=== PATIENT | female | born 1955 | race Two or more races ===

== ENCOUNTER 2018-06-24 09:30 | Outpatient (CLI) | payer MEDICARE, OTHER | END 2018-06-24 23:59 | disposition home or self-care (01) | LOC: MSC 09:30 | PROVIDERS: ATTEND Anesthesiology | DX: M51.36 Other intervertebral disc degeneration, lumbar region (principal); M47.27 Other spondylosis with radiculopathy, lumbosacral region; M79.2 Neuralgia and neuritis, unspecified; Z79.891 Long term (current) use of opiate analgesic ==

== ENCOUNTER 2018-07-22 10:30 | Outpatient (CLI) | payer MEDICARE, OTHER | END 2018-07-22 23:59 | disposition home or self-care (01) | LOC: MSC 10:30 | PROVIDERS: ATTEND Anesthesiology | DX: M46.96 Unspecified inflammatory spondylopathy, lumbar region (principal); M51.36 Other intervertebral disc degeneration, lumbar region; M47.27 Other spondylosis with radiculopathy, lumbosacral region; M79.2 Neuralgia and neuritis, unspecified; Z79.891 Long term (current) use of opiate analgesic ==

== ENCOUNTER 2018-08-05 12:30 | Outpatient (CLI) | payer MEDICARE, OTHER | END 2018-08-05 23:59 | disposition home or self-care (01) | LOC: MSC 12:30 | PROVIDERS: ATTEND Anesthesiology | DX: G89.4 Chronic pain syndrome (principal); M46.96 Unspecified inflammatory spondylopathy, lumbar region; M47.27 Other spondylosis with radiculopathy, lumbosacral region; M51.36 Other intervertebral disc degeneration, lumbar region; M79.2 Neuralgia and neuritis, unspecified; M62.830 Muscle spasm of back; E11.9 Type 2 diabetes mellitus without complications; I10 Essential (primary) hypertension; Z79.891 Long term (current) use of opiate analgesic ==

== ENCOUNTER → 2018-09-04 | Day surgery (SDC) | payer MEDICARE, OTHER ==
[~2018-09-04] MED LIST: ACETAMINOPHEN W/ CODEINE#3 1 EA TABLET ONE; ACETAMINOPHEN W/ CODEINE#3 1 EA TABLET PO ONE; BUPIVACAINE 0.25% 75 MG/30 ML VIAL ONE; IOHEXOL 240MG/ML 50 ML IV ONE; LIDOCAINE HCL/PF 1% 30 ML SDV ONE; TRIAMCINOLONE ACETONIDE SUSP 40 MG/ML 1 ML ONE; methylPREDNISolone ACETATE 80 MG/ML VIAL ONE
== END | disposition home or self-care (01) ==
LOC: DS 07:06
PROVIDERS: ATTEND Anesthesiology
DX: M47.26 Other spondylosis with radiculopathy, lumbar region (principal); M54.5 Low back pain; G89.4 Chronic pain syndrome; E11.9 Type 2 diabetes mellitus without complications; I10 Essential (primary) hypertension; Z79.4 Long term (current) use of insulin; Z90.49 Acquired absence of other specified parts of digestive tract; Z88.6 Allergy status to analgesic agent; Z79.899 Other long term (current) drug therapy
CPT/HCPCS: 62323; 72020; 82962; A6209; J1040; J2704; J3490 ×2; Q9966

== ENCOUNTER → 2018-09-05 | Outpatient (CLI) | payer MEDICARE, OTHER | END | disposition home or self-care (01) | LOC: MSC 10:30 | PROVIDERS: ATTEND Anesthesiology | DX: G89.4 Chronic pain syndrome (principal); M46.96 Unspecified inflammatory spondylopathy, lumbar region; M51.36 Other intervertebral disc degeneration, lumbar region; M47.27 Other spondylosis with radiculopathy, lumbosacral region; M79.2 Neuralgia and neuritis, unspecified; M62.830 Muscle spasm of back; Z79.891 Long term (current) use of opiate analgesic ==

== ENCOUNTER → 2018-09-23 | Outpatient (CLI) | payer MEDICARE, OTHER | END | disposition home or self-care (01) | LOC: MSC 16:00 | PROVIDERS: ATTEND Anesthesiology | DX: M46.96 Unspecified inflammatory spondylopathy, lumbar region (principal); M51.36 Other intervertebral disc degeneration, lumbar region; M47.27 Other spondylosis with radiculopathy, lumbosacral region; M62.830 Muscle spasm of back; M79.2 Neuralgia and neuritis, unspecified; G89.4 Chronic pain syndrome; E11.8 Type 2 diabetes mellitus with unspecified complications; I10 Essential (primary) hypertension; Z79.891 Long term (current) use of opiate analgesic ==

== ENCOUNTER 2018-10-14 13:00 | Outpatient (CLI) | payer MEDICARE, OTHER | END 2018-10-14 23:59 | disposition home or self-care (01) | LOC: MSC 13:00 | PROVIDERS: ATTEND Anesthesiology | DX: M46.96 Unspecified inflammatory spondylopathy, lumbar region (principal); M51.36 Other intervertebral disc degeneration, lumbar region; M47.27 Other spondylosis with radiculopathy, lumbosacral region; M79.2 Neuralgia and neuritis, unspecified; M62.830 Muscle spasm of back; G89.4 Chronic pain syndrome ==

== ENCOUNTER 2018-11-25 10:30 | Outpatient (CLI) | payer MEDICARE, OTHER | END 2018-11-25 23:59 | disposition home or self-care (01) | LOC: MSC 10:30 | PROVIDERS: ATTEND Anesthesiology | DX: M46.96 Unspecified inflammatory spondylopathy, lumbar region (principal); M51.36 Other intervertebral disc degeneration, lumbar region; M47.27 Other spondylosis with radiculopathy, lumbosacral region; M79.2 Neuralgia and neuritis, unspecified; M62.830 Muscle spasm of back; M25.512 Pain in left shoulder; G89.4 Chronic pain syndrome; E11.9 Type 2 diabetes mellitus without complications; I10 Essential (primary) hypertension; R51 Headache; Z79.899 Other long term (current) drug therapy ==

== ENCOUNTER 2019-01-06 13:30 | Outpatient (CLI) | payer MEDICARE, OTHER | END 2019-01-06 23:59 | disposition home or self-care (01) | LOC: MSC 13:30 | PROVIDERS: ATTEND Anesthesiology | DX: M46.96 Unspecified inflammatory spondylopathy, lumbar region (principal); M51.36 Other intervertebral disc degeneration, lumbar region; M47.27 Other spondylosis with radiculopathy, lumbosacral region; M62.830 Muscle spasm of back; M79.2 Neuralgia and neuritis, unspecified; G89.4 Chronic pain syndrome; E11.8 Type 2 diabetes mellitus with unspecified complications; Z79.4 Long term (current) use of insulin; I10 Essential (primary) hypertension; R51 Headache; Z79.891 Long term (current) use of opiate analgesic; Z79.899 Other long term (current) drug therapy ==

== ENCOUNTER 2019-01-27 09:45 | Outpatient (CLI) | payer MEDICARE, OTHER | END 2019-01-27 23:59 | disposition home or self-care (01) | LOC: MSC 09:45 | PROVIDERS: ATTEND Anesthesiology | DX: M46.96 Unspecified inflammatory spondylopathy, lumbar region (principal); M47.27 Other spondylosis with radiculopathy, lumbosacral region; M51.36 Other intervertebral disc degeneration, lumbar region; M79.2 Neuralgia and neuritis, unspecified; M62.830 Muscle spasm of back; G89.4 Chronic pain syndrome; E11.9 Type 2 diabetes mellitus without complications; Z79.4 Long term (current) use of insulin; I10 Essential (primary) hypertension; R51 Headache; Z79.891 Long term (current) use of opiate analgesic ==

== ENCOUNTER 2019-02-24 10:39 | Outpatient (CLI) | payer MEDICARE, OTHER | END 2019-02-24 23:59 | disposition home or self-care (01) | LOC: MSC 10:39 | PROVIDERS: ATTEND Internal Medicine | DX: Z00.00 Encounter for general adult medical examination without abnormal findings (principal); M79.7 Fibromyalgia; E11.40 Type 2 diabetes mellitus with diabetic neuropathy, unspecified; E11.43 Type 2 diabetes mellitus with diabetic autonomic (poly)neuropathy; K31.84 Gastroparesis; Z79.4 Long term (current) use of insulin; I10 Essential (primary) hypertension; F17.200 Nicotine dependence, unspecified, uncomplicated; E78.5 Hyperlipidemia, unspecified; F41.8 Other specified anxiety disorders; G89.29 Other chronic pain; M54.9 Dorsalgia, unspecified; Z98.890 Other specified postprocedural states; Z88.6 Allergy status to analgesic agent ==

== ENCOUNTER 2019-02-24 13:00 | Outpatient (CLI) | payer MEDICARE, OTHER | END 2019-02-24 23:59 | disposition home or self-care (01) | LOC: MSC 13:00 | PROVIDERS: ATTEND Anesthesiology | DX: G89.4 Chronic pain syndrome (principal); M46.96 Unspecified inflammatory spondylopathy, lumbar region; M51.36 Other intervertebral disc degeneration, lumbar region; M47.27 Other spondylosis with radiculopathy, lumbosacral region; M79.2 Neuralgia and neuritis, unspecified; Z79.891 Long term (current) use of opiate analgesic; Z79.899 Other long term (current) drug therapy ==

== ENCOUNTER → 2019-03-24 | Outpatient (CLI) | payer MEDICARE, OTHER | END | disposition home or self-care (01) | LOC: MSC 09:00 | PROVIDERS: ATTEND Anesthesiology | DX: M46.96 Unspecified inflammatory spondylopathy, lumbar region (principal); M51.36 Other intervertebral disc degeneration, lumbar region; M47.27 Other spondylosis with radiculopathy, lumbosacral region; M62.830 Muscle spasm of back; M79.2 Neuralgia and neuritis, unspecified; G89.4 Chronic pain syndrome; Z79.891 Long term (current) use of opiate analgesic ==

== ENCOUNTER 2019-04-06 10:10 | Outpatient (CLI) | payer MEDICARE, OTHER ==
[2019-04-06 11:09] LABS: BASOPHILS % (AUTO) 0.3 % (0.0-2.0); EOSINOPHILS % (AUTO) 3.2 % (0.0-6.0); HEMATOCRIT 41 % (33-45); HEMOGLOBIN 14.2 g/dL (11.5-14.8); LYMPHOCYTES # (AUTO) 2.8 /CMM (0.8-4.8); LYMPHOCYTES % (AUTO) 38.3 % (20.0-44.0); MEAN CORPUSCULAR HGB CONC 34 g/dl (31.0-36.0); MEAN CORPUSCULAR VOLUME 92 fL (82-100); MONOCYTES # (AUTO) 0.7 /CMM (0.1-1.30); MONOCYTES % (AUTO) 9.9 % (2.0-12.0); NEUTROPHILS # (AUTO) 3.5 /CMM (1.8-8.9); NEUTROPHILS % (AUTO) 48.3 % (43.0-81.0); PLATELET COUNT (AUTO) 222 /CMM (150-450); RED BLOOD CELL COUNT(AUTO) 4.49 MIL/uL (4.0-5.2); WHITE BLOOD COUNT (AUTO) 7.2 K/uL (4.3-11.0)
[2019-04-06 11:17] LABS: ALBUMIN 3.5 g/dL (3.4-5.0); BILIRUBIN,DIRECT 0.1 mg/dL (0.0-0.2); BILIRUBIN,TOTAL 0.2 mg/dL (0.2-1.0); CALCIUM, SERUM 8.7 mg/dL (8.5-10.1); CREATININE 0.8 mg/dL (0.6-1.3); POTASSIUM 4.1 mmol/L (3.5-5.1); TOTAL PROTEIN, SERUM 8.4 g/dL (6.4-8.2)
[2019-04-07 10:19] VITALS: BP 134/90
== END 2019-04-06 23:59 | disposition home or self-care (01) ==
LOC: MSC 10:10
PROVIDERS: ATTEND Internal Medicine
DX: M79.7 Fibromyalgia (principal); E11.40 Type 2 diabetes mellitus with diabetic neuropathy, unspecified; E11.43 Type 2 diabetes mellitus with diabetic autonomic (poly)neuropathy; K31.84 Gastroparesis; Z79.4 Long term (current) use of insulin; G56.00 Carpal tunnel syndrome, unspecified upper limb; I10 Essential (primary) hypertension; E78.5 Hyperlipidemia, unspecified; F17.200 Nicotine dependence, unspecified, uncomplicated; F41.8 Other specified anxiety disorders; Z79.899 Other long term (current) drug therapy
CPT/HCPCS: 36415; 80048; 80061; 80076; 82728; 83036; 83540; 85025; G0463

== ENCOUNTER → 2019-04-14 | Outpatient (CLI) | payer MEDICARE, OTHER | END | disposition home or self-care (01) | LOC: MSC 10:40 | PROVIDERS: ATTEND Anesthesiology | DX: M46.96 Unspecified inflammatory spondylopathy, lumbar region (principal); M51.36 Other intervertebral disc degeneration, lumbar region; M47.27 Other spondylosis with radiculopathy, lumbosacral region; M62.830 Muscle spasm of back; M79.2 Neuralgia and neuritis, unspecified; G89.4 Chronic pain syndrome; Z79.891 Long term (current) use of opiate analgesic ==

== ENCOUNTER → 2019-05-19 | Outpatient (CLI) | payer MEDICARE, OTHER | END | disposition home or self-care (01) | LOC: MSC 11:00 | PROVIDERS: ATTEND Anesthesiology | DX: M51.36 Other intervertebral disc degeneration, lumbar region (principal); M47.27 Other spondylosis with radiculopathy, lumbosacral region; M46.96 Unspecified inflammatory spondylopathy, lumbar region; M62.830 Muscle spasm of back; G89.4 Chronic pain syndrome; M79.2 Neuralgia and neuritis, unspecified; Z79.891 Long term (current) use of opiate analgesic ==

== ENCOUNTER 2019-06-16 09:43 | Outpatient (CLI) | payer MEDICARE, OTHER ==
[2019-06-16 09:54] VITALS: BP 148/86
== END 2019-06-16 23:59 | disposition home or self-care (01) ==
LOC: MSC 09:43
PROVIDERS: ATTEND Internal Medicine
DX: M79.7 Fibromyalgia (principal); E11.40 Type 2 diabetes mellitus with diabetic neuropathy, unspecified; E11.43 Type 2 diabetes mellitus with diabetic autonomic (poly)neuropathy; K31.84 Gastroparesis; Z79.4 Long term (current) use of insulin; G56.00 Carpal tunnel syndrome, unspecified upper limb; I10 Essential (primary) hypertension; E78.5 Hyperlipidemia, unspecified; R07.9 Chest pain, unspecified; F17.200 Nicotine dependence, unspecified, uncomplicated; F41.8 Other specified anxiety disorders

== ENCOUNTER 2019-07-06 11:20 | Outpatient (CLI) | payer MEDICARE, OTHER ==
[2019-07-06 13:02] LABS: CALCIUM, SERUM 9.1 mg/dL (8.5-10.1); CREATININE 0.9 mg/dL (0.6-1.3); POTASSIUM 4.2 mmol/L (3.5-5.1)
== END 2019-07-06 23:59 | disposition home or self-care (01) ==
LOC: LAB 11:20
PROVIDERS: ATTEND Internal Medicine Cardiovascular Disease
DX: I10 Essential (primary) hypertension (principal); E78.5 Hyperlipidemia, unspecified
CPT/HCPCS: 36415; 80048-TC; 80061-TC

== ENCOUNTER 2019-07-08 09:09 | Outpatient (CLI) | payer MEDICARE, OTHER | END 2019-07-08 23:59 | disposition home or self-care (01) | LOC: US 09:09 | PROVIDERS: ATTEND Internal Medicine Cardiovascular Disease | DX: I71.4 Abdominal aortic aneurysm, without rupture (principal) | CPT/HCPCS: 76770-TC ==

== ENCOUNTER 2019-07-09 10:15 | Outpatient (CLI) | payer MEDICARE, OTHER ==
[2019-07-09 10:22] VITALS: BP 152/94
== END 2019-07-09 23:59 | disposition home or self-care (01) ==
LOC: MSC 10:15
PROVIDERS: ATTEND Internal Medicine
DX: R07.9 Chest pain, unspecified (principal); M79.7 Fibromyalgia; E11.40 Type 2 diabetes mellitus with diabetic neuropathy, unspecified; E11.43 Type 2 diabetes mellitus with diabetic autonomic (poly)neuropathy; K31.84 Gastroparesis; Z79.4 Long term (current) use of insulin; G56.00 Carpal tunnel syndrome, unspecified upper limb; I10 Essential (primary) hypertension; E78.5 Hyperlipidemia, unspecified; F17.200 Nicotine dependence, unspecified, uncomplicated; R47.02 Dysphasia; K21.9 Gastro-esophageal reflux disease without esophagitis

== ENCOUNTER → 2019-07-10 | Day surgery (SDC) | payer MEDICARE, OTHER ==
[~2019-07-10] VITALS: Ht 157.5 cm; Wt 59.0 kg
[~2019-07-10] MED LIST changes: -ACETAMINOPHEN W/ CODEINE#3 1 EA TABLET ONE; -ACETAMINOPHEN W/ CODEINE#3 1 EA TABLET PO ONE; -BUPIVACAINE 0.25% 75 MG/30 ML VIAL ONE; -IOHEXOL 240MG/ML 50 ML IV ONE; +IOHEXOL-350 100 ML VIAL IV ONE; +IV NS 0.9% 250 ML IV ONE; +IV NS 0.9% 500 ML IV PRN; -LIDOCAINE HCL/PF 1% 30 ML SDV ONE; +METOPROLOL TARTRATE INJ 5 MG/5 ML AMPUL ONE; +NITROGLYCERIN 0.4 MG/TAB BOTTLE ONE; +NITROGLYCERIN 0.4 MG/TAB BOTTLE SL ONE; -TRIAMCINOLONE ACETONIDE SUSP 40 MG/ML 1 ML ONE; -methylPREDNISolone ACETATE 80 MG/ML VIAL ONE
[2019-07-10] MEDS: METOPROLOL TARTRATE INJ 5 MG/5 ML AMPUL IVP PRN ×4 (09:58→10:13)
--- NOTE | 2019-07-10 10:33 | NUR ---
outpatient CTA heart completed, Metoprolol 5mg IVPx4 given , NTG 0.4 mg SL given, VSS; denies CP or SOB; transferred to floor for monitoring.
[2019-07-10 11:00] VITALS: BP 105/68
[2019-07-10 11:27] VITALS: BP 129/73
--- NOTE | 2019-07-10 12:10 | NUR ---
RN NOTE PT ARRIVED TO UNIT AT 1055, IN STABLE CONDITION, VS STABLE. MONITORED, NO DISTRESS VS STABLE AND DOCUMENTED, DISCHARGE INSTRUCTIONS PROVIDED AND REMINDED TO FOLLOW UP WITH DR NEFF. PT AOX4, VERBALIZED UNDERSTANDING. PAPER SIGNED AND COPY LEFT IN CHART. IV REMOVED, NO ID BAND.
== END | disposition home or self-care (01) ==
LOC: CT 09:07
PROVIDERS: ATTEND Internal Medicine Cardiovascular Disease
DX: I25.10 Atherosclerotic heart disease of native coronary artery without angina pectoris (principal)
CPT/HCPCS: 75574; J7050 ×2; Q9967; J3490

== ENCOUNTER 2019-08-11 11:00 | Outpatient (CLI) | payer MEDICARE, OTHER | END 2019-08-11 23:59 | disposition home or self-care (01) | LOC: MSC 11:00 | PROVIDERS: ATTEND Internal Medicine | DX: L98.9 Disorder of the skin and subcutaneous tissue, unspecified (principal); R07.9 Chest pain, unspecified; M79.7 Fibromyalgia; E13.40 Other specified diabetes mellitus with diabetic neuropathy, unspecified; E13.43 Other specified diabetes mellitus with diabetic autonomic (poly)neuropathy; K31.84 Gastroparesis; Z79.4 Long term (current) use of insulin; F32.9 Major depressive disorder, single episode, unspecified; G56.00 Carpal tunnel syndrome, unspecified upper limb; I10 Essential (primary) hypertension; E78.5 Hyperlipidemia, unspecified; F17.200 Nicotine dependence, unspecified, uncomplicated; Z79.899 Other long term (current) drug therapy ==

== ENCOUNTER 2019-08-15 11:41 | Emergency (ER) | payer MEDICARE, OTHER ==
[~2019-08-15] VITALS: Ht 157.5 cm; Wt 62.1 kg
[2019-08-15 11:52] VITALS: BP 137/89
--- NOTE | 2019-08-15 12:17 | NUR ---
Patient discharged to home in stable condition. Written and verbal after care instructions given. Patient verbalizes understanding of instruction.
== END 2019-08-15 12:18 | disposition home or self-care (01) ==
LOC: ER 11:43
DX: J02.8 Acute pharyngitis due to other specified organisms (principal); E11.9 Type 2 diabetes mellitus without complications; Z88.6 Allergy status to analgesic agent

== ENCOUNTER 2019-08-17 09:00 | Outpatient (CLI) | payer MEDICARE, OTHER | END 2019-08-17 23:59 | disposition home or self-care (01) | LOC: WOU 09:00 | PROVIDERS: ATTEND Surgery | DX: L72.0 Epidermal cyst (principal); L90.5 Scar conditions and fibrosis of skin; E11.9 Type 2 diabetes mellitus without complications; Z79.4 Long term (current) use of insulin; F17.200 Nicotine dependence, unspecified, uncomplicated | CPT/HCPCS: G0463 ==

== ENCOUNTER 2019-08-28 08:15 | Outpatient (CLI) | payer MEDICARE, OTHER | END 2019-08-28 23:59 | disposition home or self-care (01) | LOC: WOU 08:15 | PROVIDERS: ATTEND Surgery | DX: L72.0 Epidermal cyst (principal); L90.5 Scar conditions and fibrosis of skin; G89.29 Other chronic pain; E11.9 Type 2 diabetes mellitus without complications; Z79.4 Long term (current) use of insulin; Z79.899 Other long term (current) drug therapy | CPT/HCPCS: G0463 ==

== ENCOUNTER 2019-09-08 10:10 | Outpatient (CLI) | payer MEDICARE, OTHER | END 2019-09-08 23:59 | disposition home or self-care (01) | LOC: MSC 10:10 | PROVIDERS: ATTEND Anesthesiology | DX: M46.96 Unspecified inflammatory spondylopathy, lumbar region (principal); M51.36 Other intervertebral disc degeneration, lumbar region; M47.27 Other spondylosis with radiculopathy, lumbosacral region; M62.830 Muscle spasm of back; M79.2 Neuralgia and neuritis, unspecified; G89.4 Chronic pain syndrome; E11.9 Type 2 diabetes mellitus without complications; I10 Essential (primary) hypertension; R51 Headache; Z79.891 Long term (current) use of opiate analgesic; Z79.82 Long term (current) use of aspirin ==

== ENCOUNTER 2019-10-13 12:29 | Outpatient (CLI) | payer MEDICARE, OTHER | END 2019-10-13 23:59 | disposition home or self-care (01) | LOC: MSC 12:29 | PROVIDERS: ATTEND Internal Medicine | DX: M46.96 Unspecified inflammatory spondylopathy, lumbar region (principal); M51.36 Other intervertebral disc degeneration, lumbar region; M47.27 Other spondylosis with radiculopathy, lumbosacral region; M62.830 Muscle spasm of back; G89.4 Chronic pain syndrome; M79.605 Pain in left leg; M79.604 Pain in right leg; M72.2 Plantar fascial fibromatosis; M79.2 Neuralgia and neuritis, unspecified; E11.40 Type 2 diabetes mellitus with diabetic neuropathy, unspecified; E11.43 Type 2 diabetes mellitus with diabetic autonomic (poly)neuropathy; K31.84 Gastroparesis; Z79.4 Long term (current) use of insulin; R07.9 Chest pain, unspecified; M79.7 Fibromyalgia; I10 Essential (primary) hypertension; E78.5 Hyperlipidemia, unspecified; L98.9 Disorder of the skin and subcutaneous tissue, unspecified; F17.200 Nicotine dependence, unspecified, uncomplicated; Z79.891 Long term (current) use of opiate analgesic; Z79.899 Other long term (current) drug therapy | CPT/HCPCS: 82962; G0463 ==

== ENCOUNTER → 2019-11-03 | Outpatient (CLI) | payer MEDICARE, OTHER | END | disposition home or self-care (01) | LOC: MSC 11:34 | PROVIDERS: ATTEND Anesthesiology | DX: M46.96 Unspecified inflammatory spondylopathy, lumbar region (principal); M51.36 Other intervertebral disc degeneration, lumbar region; M47.27 Other spondylosis with radiculopathy, lumbosacral region; M62.830 Muscle spasm of back; G89.4 Chronic pain syndrome; M79.605 Pain in left leg; M79.604 Pain in right leg; E11.9 Type 2 diabetes mellitus without complications; I10 Essential (primary) hypertension; R51 Headache; Z79.891 Long term (current) use of opiate analgesic ==

== ENCOUNTER 2019-12-01 09:40 | Outpatient (CLI) | payer MEDICARE, OTHER | END 2019-12-01 23:59 | disposition home or self-care (01) | LOC: MSC 09:40 | PROVIDERS: ATTEND Anesthesiology | DX: M46.96 Unspecified inflammatory spondylopathy, lumbar region (principal); M51.36 Other intervertebral disc degeneration, lumbar region; M47.27 Other spondylosis with radiculopathy, lumbosacral region; M62.830 Muscle spasm of back; G89.4 Chronic pain syndrome; M79.2 Neuralgia and neuritis, unspecified; E11.9 Type 2 diabetes mellitus without complications; I10 Essential (primary) hypertension; R51 Headache; Z79.891 Long term (current) use of opiate analgesic ==

== ENCOUNTER → 2020-01-12 | Outpatient (CLI) | payer MEDICARE, OTHER | END | disposition home or self-care (01) | LOC: MSC 08:55 | PROVIDERS: ATTEND Anesthesiology | DX: M46.96 Unspecified inflammatory spondylopathy, lumbar region (principal); M51.36 Other intervertebral disc degeneration, lumbar region; M47.27 Other spondylosis with radiculopathy, lumbosacral region; M62.830 Muscle spasm of back; G89.4 Chronic pain syndrome; M79.605 Pain in left leg; M79.604 Pain in right leg; M79.2 Neuralgia and neuritis, unspecified; Z79.891 Long term (current) use of opiate analgesic; Z79.1 Long term (current) use of non-steroidal anti-inflammatories (NSAID) ==

== ENCOUNTER → 2020-02-09 | Outpatient (CLI) | payer MEDICARE, OTHER | END | disposition home or self-care (01) | LOC: MSC 08:45 | PROVIDERS: ATTEND Anesthesiology | DX: M51.36 Other intervertebral disc degeneration, lumbar region (principal); M46.96 Unspecified inflammatory spondylopathy, lumbar region; M47.27 Other spondylosis with radiculopathy, lumbosacral region; M62.830 Muscle spasm of back; M79.673 Pain in unspecified foot; M79.2 Neuralgia and neuritis, unspecified; G89.4 Chronic pain syndrome; R51 Headache; E11.9 Type 2 diabetes mellitus without complications; I10 Essential (primary) hypertension; Z79.891 Long term (current) use of opiate analgesic ==

== ENCOUNTER → 2020-03-01 | Outpatient (CLI) | payer MEDICARE, OTHER | END | disposition home or self-care (01) | LOC: MSC 14:15 | PROVIDERS: ATTEND Anesthesiology | DX: M46.96 Unspecified inflammatory spondylopathy, lumbar region (principal); M51.36 Other intervertebral disc degeneration, lumbar region; M47.27 Other spondylosis with radiculopathy, lumbosacral region; M62.830 Muscle spasm of back; G89.4 Chronic pain syndrome; M79.673 Pain in unspecified foot; M79.2 Neuralgia and neuritis, unspecified; E11.9 Type 2 diabetes mellitus without complications; I10 Essential (primary) hypertension; R51 Headache; Z79.891 Long term (current) use of opiate analgesic ==

== ENCOUNTER 2020-04-03 13:55 | Emergency (ER) | payer MEDICARE, OTHER ==
[~2020-04-03] VITALS: Ht 157.5 cm; Wt 58.1 kg
--- NOTE | 2020-04-03 14:27 | NUR ---
c/o chest pain, "feels like im burning" radiating to left armpit and lower back since yesterday 6/10 pain scale. PT AAOX4, VSS. RR EVEN & UNLABORED. DENIES SOB, DIZZINESS, N/V AT THIS TIME. PT SEEN & EVAL'D BY DR. BAER. PLACED ON NICK SETTER, SR. WILL CONT TO MONITOR.
[2020-04-03] MEDS ORDERED: LIDOCAINE VISCOUS 2% UD 15 ML UDC MM ONE (15:00)
[2020-04-03] MEDS ORDERED: IBUPROFEN 600 MG TABLET PO ONE (15:00)
[2020-04-03] MEDS ORDERED: MAG HYDROX/AL HYDROX/SIMETH 30 ML UDC PO ONE (15:00)
[2020-04-03] MEDS ORDERED: IV NS 0.9% 500 ML BAG IV ONE (15:00)
[2020-04-03] MEDS ORDERED: MAG HYDROX/AL HYDROX/SIMETH 30 ML UDC ONE (15:07)
[2020-04-03] MEDS ORDERED: LIDOCAINE VISCOUS 2% UD 15 ML UDC ONE (15:07)
[2020-04-03] MEDS ORDERED: IBUPROFEN 600 MG TABLET ONE (15:07)
--- NOTE | 2020-04-03 15:16 | NUR ---
PT REFUSED MEDS. DR. BAER AWARE.
[2020-04-03 15:34] LABS: BASOPHILS # (AUTO) 0.1 /CMM (0.0-0.2); BASOPHILS % (AUTO) 1.2 % (0.0-2.0); EOSINOPHILS % (AUTO) 2.6 % (0.0-6.0); HEMATOCRIT 42 % (33-45); HEMOGLOBIN 14.5 g/dL (11.5-14.8); LYMPHOCYTES # (AUTO) 2.6 /CMM (0.8-4.8); LYMPHOCYTES % (AUTO) 34.4 % (20.0-44.0); MEAN CORPUSCULAR HGB CONC 34 g/dl (31.0-36.0); MEAN CORPUSCULAR VOLUME 94 fL (82-100); MONOCYTES # (AUTO) 0.7 /CMM (0.1-1.30); NEUTROPHILS # (AUTO) 3.8 /CMM (1.8-8.9); NEUTROPHILS % (AUTO) 51.8 % (43.0-81.0); PLATELET COUNT (AUTO) 240 /CMM (150-450); RED BLOOD CELL COUNT(AUTO) 4.47 MIL/uL (4.0-5.2); WHITE BLOOD COUNT (AUTO) 7.4 K/uL (4.3-11.0)
[2020-04-03 15:42] LABS: CALCIUM, SERUM 8.8 mg/dL (8.5-10.1); CARBON DIOXIDE 28 mmol/L (21-32); CHLORIDE 101 mmol/L (98-107); CREATININE 0.7 mg/dL (0.6-1.3); GLUCOSE 271 mg/dL (74-106); POTASSIUM 3.6 mmol/L (3.5-5.1); SODIUM SERUM 133 mmol/L (136-145); UREA NITROGEN, BLOOD 10 mg/dL (7-18)
[2020-04-03 15:48] LABS: ALANINE AMINOTRANSFERASE 34 U/L (12-78); ALKALINE PHOSPHATASE 117 U/L (46-116); ASPARTATE AMINOTRANSFERASE 30 U/L (15-37); BILIRUBIN,DIRECT 0.1 mg/dL (0.0-0.2); BILIRUBIN,TOTAL 0.2 mg/dL (0.2-1.0); LIPASE 162 U/L (73-393)
--- NOTE | 2020-04-03 16:30 | NUR ---
Patient discharged to home in stable condition. Written and verbal after care instructions given. Patient verbalizes understanding of instruction. IV removed. Catheter intact and site benign. Pressure and 4x4 applied to site. No bleeding noted.
[2020-04-03 16:45] VITALS: BP 132/89
== END 2020-04-03 16:30 | disposition home or self-care (01) ==
LOC: ER 14:03
DX: R07.89 Other chest pain (principal); R10.13 Epigastric pain; I10 Essential (primary) hypertension; E78.5 Hyperlipidemia, unspecified; E11.40 Type 2 diabetes mellitus with diabetic neuropathy, unspecified; G89.4 Chronic pain syndrome; Z88.6 Allergy status to analgesic agent
CPT/HCPCS: 36415; 71045-TC; 80048-TC; 80076-TC; 83690-TC; 84484-TC; 85025-TC; J7040

== ENCOUNTER 2020-04-05 10:33 | Outpatient (CLI) | payer MEDICARE, OTHER | END 2020-04-05 23:59 | disposition home or self-care (01) | LOC: MSC 10:33 | PROVIDERS: ATTEND Internal Medicine | DX: F41.9 Anxiety disorder, unspecified (principal); M79.673 Pain in unspecified foot; R07.9 Chest pain, unspecified; L72.0 Epidermal cyst; M79.7 Fibromyalgia; F32.9 Major depressive disorder, single episode, unspecified; E11.40 Type 2 diabetes mellitus with diabetic neuropathy, unspecified; E11.43 Type 2 diabetes mellitus with diabetic autonomic (poly)neuropathy; K31.84 Gastroparesis; Z79.4 Long term (current) use of insulin; G56.00 Carpal tunnel syndrome, unspecified upper limb; I10 Essential (primary) hypertension; E78.5 Hyperlipidemia, unspecified ==

== ENCOUNTER 2020-04-18 13:47 | Outpatient (CLI) | payer MEDICARE, OTHER | END 2020-04-18 23:59 | disposition home or self-care (01) | LOC: MSC 13:47 | PROVIDERS: ATTEND Internal Medicine | DX: F41.9 Anxiety disorder, unspecified (principal); M79.673 Pain in unspecified foot; R07.9 Chest pain, unspecified; L72.0 Epidermal cyst; M79.7 Fibromyalgia; F32.9 Major depressive disorder, single episode, unspecified; E11.40 Type 2 diabetes mellitus with diabetic neuropathy, unspecified; E11.43 Type 2 diabetes mellitus with diabetic autonomic (poly)neuropathy; K31.84 Gastroparesis; Z79.4 Long term (current) use of insulin; G56.00 Carpal tunnel syndrome, unspecified upper limb; I10 Essential (primary) hypertension; E78.5 Hyperlipidemia, unspecified ==

== ENCOUNTER 2020-05-03 15:00 | Outpatient (CLI) | payer MEDICARE, OTHER | END 2020-05-03 23:59 | disposition home or self-care (01) | LOC: MSC 15:00 | PROVIDERS: ATTEND Anesthesiology | DX: M46.96 Unspecified inflammatory spondylopathy, lumbar region (principal); M51.36 Other intervertebral disc degeneration, lumbar region; M47.27 Other spondylosis with radiculopathy, lumbosacral region; M62.830 Muscle spasm of back; M79.2 Neuralgia and neuritis, unspecified; G89.4 Chronic pain syndrome; M79.673 Pain in unspecified foot; E11.9 Type 2 diabetes mellitus without complications; I10 Essential (primary) hypertension; R51.9 Headache, unspecified; Z79.891 Long term (current) use of opiate analgesic ==

== ENCOUNTER 2020-05-05 11:26 | Outpatient (CLI) | payer MEDICARE, OTHER | END 2020-05-05 23:59 | disposition home or self-care (01) | LOC: MSC 11:26 | PROVIDERS: ATTEND Internal Medicine | DX: M79.7 Fibromyalgia (principal); E11.40 Type 2 diabetes mellitus with diabetic neuropathy, unspecified; E11.43 Type 2 diabetes mellitus with diabetic autonomic (poly)neuropathy; K31.84 Gastroparesis; Z79.4 Long term (current) use of insulin; I10 Essential (primary) hypertension; F33.0 Major depressive disorder, recurrent, mild; M79.673 Pain in unspecified foot; R07.9 Chest pain, unspecified; E78.5 Hyperlipidemia, unspecified; G56.00 Carpal tunnel syndrome, unspecified upper limb; L72.9 Follicular cyst of the skin and subcutaneous tissue, unspecified; F17.200 Nicotine dependence, unspecified, uncomplicated ==

== ENCOUNTER 2020-06-07 09:52 | Outpatient (CLI) | payer MEDICARE, OTHER | END 2020-06-07 23:59 | disposition home or self-care (01) | LOC: MSC 09:52 | PROVIDERS: ATTEND Anesthesiology | DX: M46.96 Unspecified inflammatory spondylopathy, lumbar region (principal); M51.36 Other intervertebral disc degeneration, lumbar region; M47.27 Other spondylosis with radiculopathy, lumbosacral region; M62.830 Muscle spasm of back; G89.4 Chronic pain syndrome; M79.2 Neuralgia and neuritis, unspecified; M79.672 Pain in left foot; M79.671 Pain in right foot; Z79.891 Long term (current) use of opiate analgesic ==

== ENCOUNTER 2020-07-05 13:00 | Outpatient (CLI) | payer MEDICARE, OTHER | END 2020-07-05 23:59 | disposition home or self-care (01) | LOC: MSC 13:00 | PROVIDERS: ATTEND Anesthesiology | DX: M46.96 Unspecified inflammatory spondylopathy, lumbar region (principal); M51.36 Other intervertebral disc degeneration, lumbar region; M47.27 Other spondylosis with radiculopathy, lumbosacral region; M62.830 Muscle spasm of back; G89.4 Chronic pain syndrome; M79.2 Neuralgia and neuritis, unspecified; M79.673 Pain in unspecified foot; Z79.891 Long term (current) use of opiate analgesic ==

== ENCOUNTER 2020-08-02 11:35 | Outpatient (CLI) | payer MEDICARE, OTHER | END 2020-08-02 23:59 | disposition home or self-care (01) | LOC: MSC 11:35 | PROVIDERS: ATTEND Anesthesiology | DX: G89.4 Chronic pain syndrome (principal); M79.673 Pain in unspecified foot; M79.2 Neuralgia and neuritis, unspecified; M51.36 Other intervertebral disc degeneration, lumbar region; M46.96 Unspecified inflammatory spondylopathy, lumbar region; M47.27 Other spondylosis with radiculopathy, lumbosacral region; M62.830 Muscle spasm of back; Z88.6 Allergy status to analgesic agent; Z79.891 Long term (current) use of opiate analgesic ==

== ENCOUNTER 2020-08-05 08:10 | Outpatient (CLI) | payer MEDICARE, OTHER ==
[2020-08-05] MEDS ORDERED: UREA 10% -AHA 4% CREAM 57 GM TUBE ONE (09:16)
== END 2020-08-05 23:59 | disposition home or self-care (01) ==
LOC: WOU 08:10
PROVIDERS: ATTEND Podiatrist Foot & Ankle Surgery
DX: M79.671 Pain in right foot (principal); S91.301A Unspecified open wound, right foot, initial encounter; X58.XXXA Exposure to other specified factors, initial encounter; Y92.89 Other specified places as the place of occurrence of the external cause; L84 Corns and callosities; E11.9 Type 2 diabetes mellitus without complications; Z79.4 Long term (current) use of insulin; L90.5 Scar conditions and fibrosis of skin
CPT/HCPCS: G0463

== ENCOUNTER 2020-08-30 09:00 | Outpatient (CLI) | payer MEDICARE, OTHER | END 2020-08-30 23:59 | disposition home or self-care (01) | LOC: MSC 09:00 | PROVIDERS: ATTEND Anesthesiology | DX: M46.96 Unspecified inflammatory spondylopathy, lumbar region (principal); M51.36 Other intervertebral disc degeneration, lumbar region; M47.27 Other spondylosis with radiculopathy, lumbosacral region; M62.830 Muscle spasm of back; M79.2 Neuralgia and neuritis, unspecified; G89.4 Chronic pain syndrome; M79.673 Pain in unspecified foot; Z76.0 Encounter for issue of repeat prescription; Z88.6 Allergy status to analgesic agent; Z79.891 Long term (current) use of opiate analgesic ==

== ENCOUNTER → 2020-09-27 | Outpatient (CLI) | payer MEDICARE, OTHER | END | disposition home or self-care (01) | LOC: MSC 09-28 10:30 | PROVIDERS: ATTEND Anesthesiology | DX: M46.96 Unspecified inflammatory spondylopathy, lumbar region (principal); M51.36 Other intervertebral disc degeneration, lumbar region; M47.27 Other spondylosis with radiculopathy, lumbosacral region; M62.830 Muscle spasm of back; M79.2 Neuralgia and neuritis, unspecified; G89.4 Chronic pain syndrome; M79.673 Pain in unspecified foot; Z88.6 Allergy status to analgesic agent; Z79.891 Long term (current) use of opiate analgesic; Z79.899 Other long term (current) drug therapy ==

== ENCOUNTER 2020-11-01 09:20 | Outpatient (CLI) | payer MEDICARE, OTHER | END 2020-11-01 23:59 | disposition home or self-care (01) | LOC: MSC 09:20 | PROVIDERS: ATTEND Anesthesiology | DX: M47.27 Other spondylosis with radiculopathy, lumbosacral region (principal); M46.96 Unspecified inflammatory spondylopathy, lumbar region; M51.36 Other intervertebral disc degeneration, lumbar region; M62.830 Muscle spasm of back; G89.4 Chronic pain syndrome; M79.2 Neuralgia and neuritis, unspecified; M79.673 Pain in unspecified foot; Z79.891 Long term (current) use of opiate analgesic ==

== ENCOUNTER 2020-11-09 13:15 | Outpatient (CLI) | payer MEDICARE, OTHER | END 2020-11-09 23:59 | disposition home or self-care (01) | LOC: WOU 13:15 | PROVIDERS: ATTEND Podiatrist Foot & Ankle Surgery | DX: L90.5 Scar conditions and fibrosis of skin (principal); L84 Corns and callosities; E11.9 Type 2 diabetes mellitus without complications; Z79.4 Long term (current) use of insulin; M79.671 Pain in right foot | CPT/HCPCS: G0463 ==

== ENCOUNTER 2020-12-06 10:00 | Outpatient (CLI) | payer MEDICARE, OTHER | END 2020-12-06 23:59 | disposition home or self-care (01) | LOC: MSC 10:00 | PROVIDERS: ATTEND Anesthesiology | DX: M46.96 Unspecified inflammatory spondylopathy, lumbar region (principal); M51.36 Other intervertebral disc degeneration, lumbar region; M47.27 Other spondylosis with radiculopathy, lumbosacral region; M62.830 Muscle spasm of back; G89.4 Chronic pain syndrome; M79.673 Pain in unspecified foot; E11.40 Type 2 diabetes mellitus with diabetic neuropathy, unspecified; Z79.4 Long term (current) use of insulin; M79.2 Neuralgia and neuritis, unspecified; Z88.6 Allergy status to analgesic agent; Z79.891 Long term (current) use of opiate analgesic ==

== ENCOUNTER 2020-12-09 10:25 | Outpatient (CLI) | payer MEDICARE, OTHER | END 2020-12-09 23:59 | disposition home or self-care (01) | LOC: WOU 10:25 | PROVIDERS: ATTEND Podiatrist Foot & Ankle Surgery | DX: G57.53 Tarsal tunnel syndrome, bilateral lower limbs (principal); M72.2 Plantar fascial fibromatosis; L84 Corns and callosities; E11.9 Type 2 diabetes mellitus without complications; L90.5 Scar conditions and fibrosis of skin; M79.672 Pain in left foot; M79.671 Pain in right foot; Z79.4 Long term (current) use of insulin | CPT/HCPCS: G0463 ==

== ENCOUNTER 2020-12-12 11:14 | Outpatient (CLI) | payer MEDICARE, OTHER | END 2020-12-12 23:59 | disposition home or self-care (01) | LOC: RAD 11:14 | PROVIDERS: ATTEND Podiatrist Foot & Ankle Surgery | DX: M21.41 Flat foot [pes planus] (acquired), right foot (principal); M21.42 Flat foot [pes planus] (acquired), left foot; M77.31 Calcaneal spur, right foot ==

== ENCOUNTER 2020-12-13 10:46 | Outpatient (CLI) | payer MEDICARE, OTHER ==
[2020-12-13 12:10] LABS: BILIRUBIN,URINE NEGATIVE (NEGATIVE); LEUKOCYTE ESTERASE ,URINE NEGATIVE (NEGATIVE); NITRITE, URINE NEGATIVE (NEGATIVE); PROTEIN,URINE TRACE mg/dl (NEGATIVE); UGLUCOSE >=1000 mg/dL (NEGATIVE); UROBILINOGEN,URINE 0.2 EU/dL (0.2)
[2020-12-13 12:20] LABS: COLOR,URINE YELLOW (YELLOW)
[2020-12-13 12:22] LABS: BACTERIA,URINE None seen /HPF (None Seen); SQUAMOUS EPITHELIAL CELL,UR Rare /HPF (None Seen); WBC,URINE 0-2 /HPF (0-3)
[2020-12-13 12:23] LABS: BASOPHILS # (AUTO) 0.1 K/uL (0.0-0.2); BASOPHILS % (AUTO) 1.2 % (0.0-2.0); HEMATOCRIT 39 % (33-45); HEMOGLOBIN 13.2 g/dL (11.5-14.8); LYMPHOCYTES # (AUTO) 2.3 K/uL (0.8-4.8); LYMPHOCYTES % (AUTO) 33.3 % (20.0-44.0); MEAN CORPUSCULAR HGB CONC 34 g/dl (31.0-36.0); MEAN CORPUSCULAR VOLUME 95 fL (82-100); MONOCYTES # (AUTO) 0.6 K/uL (0.1-1.30); MONOCYTES % (AUTO) 9.2 % (2.0-12.0); NEUTROPHILS # (AUTO) 3.5 K/uL (1.8-8.9); NEUTROPHILS % (AUTO) 51.3 % (43.0-81.0); PLATELET COUNT (AUTO) 221 K/uL (150-450); RED BLOOD CELL COUNT(AUTO) 4.08 MIL/uL (4.0-5.2); WHITE BLOOD COUNT (AUTO) 6.8 K/uL (4.3-11.0)
[2020-12-13 12:28] LABS: CHOLESTEROL 92 mg/dL (<200); CREATININE, URINE 73.3 MG/DL (30.0-125.0); FREE T4 (FREE THYROXINE) 1.08 ng/dL (0.76-1.46); HDL CHOLESTEROL 24 mg/dL (40-60); LDL 35 mg/dL (0-99); PREALBUMIN 21.7 MG/DL (18.0-35.7); THYROID STIMULATING HORMONE 1.075 uIU/mL (0.358-3.74); TRIGLYCERIDES 189 mg/dL (30-150)
[2020-12-13 12:39] LABS: C-REACTIVE PROTEIN < 2.0 mg/dL (0.0-0.9)
[2020-12-13 13:00] LABS: ALKALINE PHOSPHATASE 99 U/L (46-116); BILIRUBIN,TOTAL 0.3 mg/dL (0.2-1.0); CALCIUM, SERUM 8.9 mg/dL (8.5-10.1); CARBON DIOXIDE 26 mmol/L (21-32); CHLORIDE 103 mmol/L (98-107); CREATININE 0.8 mg/dL (0.6-1.3); GLUCOSE 169 mg/dL (74-106); PHOSPHORUS 3.5 mg/dL (2.5-4.9); POTASSIUM 4.3 mmol/L (3.5-5.1); SODIUM SERUM 137 mmol/L (136-145); UREA NITROGEN, BLOOD 14 mg/dL (7-18)
[2020-12-13 13:01] LABS: ALANINE AMINOTRANSFERASE 38 U/L (12-78); ALBUMIN 3.5 g/dL (3.4-5.0); ASPARTATE AMINOTRANSFERASE 31 U/L (15-37); TOTAL PROTEIN, SERUM 8.2 g/dL (6.4-8.2)
== END 2020-12-13 23:59 | disposition home or self-care (01) ==
LOC: MSC 10:46
PROVIDERS: ATTEND Internal Medicine
DX: R63.4 Abnormal weight loss (principal); Z68.22 Body mass index [BMI] 22.0-22.9, adult; I25.2 Old myocardial infarction; Z95.820 Peripheral vascular angioplasty status with implants and grafts; I50.9 Heart failure, unspecified; M54.5 Low back pain; E11.40 Type 2 diabetes mellitus with diabetic neuropathy, unspecified; Z79.4 Long term (current) use of insulin; I25.10 Atherosclerotic heart disease of native coronary artery without angina pectoris; F17.200 Nicotine dependence, unspecified, uncomplicated; Z79.899 Other long term (current) drug therapy
CPT/HCPCS: 36415; 80053; 80061; 81001; 82043; 82306; 82570 ×2; 82607; 82746; 83036; 83735; 83970; 84100; 84134; 84155; 84439; 84443; 85025; 85652; 86140; G0463

== ENCOUNTER 2020-12-27 10:40 | Outpatient (CLI) | payer MEDICARE, OTHER | END 2020-12-27 23:59 | disposition home or self-care (01) | LOC: MSC 10:40 | PROVIDERS: ATTEND Anesthesiology | DX: M79.671 Pain in right foot (principal); M79.672 Pain in left foot; E11.9 Type 2 diabetes mellitus without complications; Z79.4 Long term (current) use of insulin; M51.36 Other intervertebral disc degeneration, lumbar region; M46.96 Unspecified inflammatory spondylopathy, lumbar region; M47.27 Other spondylosis with radiculopathy, lumbosacral region; M79.2 Neuralgia and neuritis, unspecified; M62.830 Muscle spasm of back; G89.4 Chronic pain syndrome; Z79.891 Long term (current) use of opiate analgesic; Z79.1 Long term (current) use of non-steroidal anti-inflammatories (NSAID); Z88.6 Allergy status to analgesic agent ==

== ENCOUNTER → 2021-01-24 | Outpatient (CLI) | payer MEDICARE, OTHER | END | disposition home or self-care (01) | LOC: MSC 10:45 | PROVIDERS: ATTEND Anesthesiology | DX: M46.96 Unspecified inflammatory spondylopathy, lumbar region (principal); M51.36 Other intervertebral disc degeneration, lumbar region; M47.27 Other spondylosis with radiculopathy, lumbosacral region; M62.830 Muscle spasm of back; G89.4 Chronic pain syndrome; M79.672 Pain in left foot; M79.671 Pain in right foot; M79.2 Neuralgia and neuritis, unspecified; Z79.891 Long term (current) use of opiate analgesic; Z79.1 Long term (current) use of non-steroidal anti-inflammatories (NSAID); Z79.4 Long term (current) use of insulin ==

== ENCOUNTER 2021-02-28 11:00 | Outpatient (CLI) | payer MEDICARE, OTHER | END 2021-02-28 23:59 | disposition home or self-care (01) | LOC: MSC 11:00 | PROVIDERS: ATTEND Anesthesiology | DX: M46.96 Unspecified inflammatory spondylopathy, lumbar region (principal); M51.36 Other intervertebral disc degeneration, lumbar region; M47.27 Other spondylosis with radiculopathy, lumbosacral region; M62.830 Muscle spasm of back; M79.2 Neuralgia and neuritis, unspecified; G89.4 Chronic pain syndrome; M79.673 Pain in unspecified foot; R20.2 Paresthesia of skin; Z79.84 Long term (current) use of oral hypoglycemic drugs; Z79.891 Long term (current) use of opiate analgesic ==

== ENCOUNTER → 2021-03-28 | Outpatient (CLI) | payer MEDICARE, OTHER | END | disposition home or self-care (01) | LOC: MSC 09:50 | PROVIDERS: ATTEND Anesthesiology | DX: M46.96 Unspecified inflammatory spondylopathy, lumbar region (principal); M51.36 Other intervertebral disc degeneration, lumbar region; M47.27 Other spondylosis with radiculopathy, lumbosacral region; M62.830 Muscle spasm of back; M79.2 Neuralgia and neuritis, unspecified; G89.4 Chronic pain syndrome; M79.673 Pain in unspecified foot; R20.2 Paresthesia of skin; Z88.6 Allergy status to analgesic agent; Z79.891 Long term (current) use of opiate analgesic; Z79.1 Long term (current) use of non-steroidal anti-inflammatories (NSAID); Z79.4 Long term (current) use of insulin ==

== ENCOUNTER → 2021-04-10 | Outpatient (CLI) | payer MEDICARE, OTHER | END | disposition home or self-care (01) | LOC: MSC 13:00 | PROVIDERS: ATTEND Internal Medicine | DX: M25.862 Other specified joint disorders, left knee (principal); I25.2 Old myocardial infarction; I50.9 Heart failure, unspecified; Z95.5 Presence of coronary angioplasty implant and graft; Z79.01 Long term (current) use of anticoagulants; I25.10 Atherosclerotic heart disease of native coronary artery without angina pectoris; E11.40 Type 2 diabetes mellitus with diabetic neuropathy, unspecified; Z79.4 Long term (current) use of insulin; R63.4 Abnormal weight loss; M54.50 Low back pain, unspecified; Z79.899 Other long term (current) drug therapy ==

== ENCOUNTER 2021-04-12 09:59 | Outpatient (CLI) | payer MEDICARE, OTHER | END 2021-04-12 23:59 | disposition home or self-care (01) | LOC: US 09:59 | PROVIDERS: ATTEND Internal Medicine | DX: M25.562 Pain in left knee (principal) | CPT/HCPCS: 73562; 76882 ==

== ENCOUNTER → 2021-04-13 | Outpatient (CLI) | payer MEDICARE, OTHER ==
[2021-04-13 10:45] LABS: BASOPHILS % (AUTO) 0.6 % (0.0-2.0); EOSINOPHILS % (AUTO) 4.2 % (0.0-6.0); HEMATOCRIT 42 % (33-45); HEMOGLOBIN 13.9 g/dL (11.5-14.8); LYMPHOCYTES # (AUTO) 1.8 K/uL (0.8-4.8); MEAN CORPUSCULAR HGB CONC 33 g/dl (31.0-36.0); MEAN CORPUSCULAR VOLUME 95 fL (82-100); MONOCYTES # (AUTO) 0.8 K/uL (0.1-1.30); MONOCYTES % (AUTO) 11.9 % (2.0-12.0); NEUTROPHILS # (AUTO) 3.5 K/uL (1.8-8.9); NEUTROPHILS % (AUTO) 55.3 % (43.0-81.0); PLATELET COUNT (AUTO) 203 K/uL (150-450); RED BLOOD CELL COUNT(AUTO) 4.37 MIL/uL (4.0-5.2); WHITE BLOOD COUNT (AUTO) 6.4 K/uL (4.3-11.0)
[2021-04-13 11:28] LABS: ALANINE AMINOTRANSFERASE 34 U/L (12-78); ALBUMIN 3.4 g/dL (3.4-5.0); ALKALINE PHOSPHATASE 115 U/L (46-116); ASPARTATE AMINOTRANSFERASE 35 U/L (15-37); BILIRUBIN,TOTAL 0.3 mg/dL (0.2-1.0); CALCIUM, SERUM 9.5 mg/dL (8.5-10.1); CARBON DIOXIDE 24 mmol/L (21-32); CHLORIDE 101 mmol/L (98-107); CREATININE 0.9 mg/dL (0.6-1.3); GLUCOSE 207 mg/dL (74-106); POTASSIUM 4.4 mmol/L (3.5-5.1); SODIUM SERUM 134 mmol/L (136-145); TOTAL PROTEIN, SERUM 8.3 g/dL (6.4-8.2); UREA NITROGEN, BLOOD 15 mg/dL (7-18)
[2021-04-13 11:31] LABS: C-REACTIVE PROTEIN < 0.2 mg/dL (0.0-0.9)
== END | disposition home or self-care (01) ==
LOC: MSC 09:52
PROVIDERS: ATTEND Internal Medicine
DX: R22.42 Localized swelling, mass and lump, left lower limb (principal); E11.40 Type 2 diabetes mellitus with diabetic neuropathy, unspecified; Z79.4 Long term (current) use of insulin; I25.2 Old myocardial infarction; I50.9 Heart failure, unspecified; R63.4 Abnormal weight loss; I25.10 Atherosclerotic heart disease of native coronary artery without angina pectoris; M54.50 Low back pain, unspecified; Z71.6 Tobacco abuse counseling; Z79.899 Other long term (current) drug therapy
CPT/HCPCS: 36415; 80053; 83036; 85025; 85652; 86140; G0463

== ENCOUNTER 2021-04-14 13:15 | Outpatient (CLI) | payer MEDICARE, OTHER | END 2021-04-14 23:59 | disposition home or self-care (01) | LOC: MSC 13:15 | PROVIDERS: ATTEND Internal Medicine | DX: R22.42 Localized swelling, mass and lump, left lower limb (principal); I25.2 Old myocardial infarction; Z95.5 Presence of coronary angioplasty implant and graft; I50.9 Heart failure, unspecified; Z79.01 Long term (current) use of anticoagulants; I25.10 Atherosclerotic heart disease of native coronary artery without angina pectoris; E11.40 Type 2 diabetes mellitus with diabetic neuropathy, unspecified; Z79.4 Long term (current) use of insulin; Z79.84 Long term (current) use of oral hypoglycemic drugs; R63.4 Abnormal weight loss; M54.50 Low back pain, unspecified; Z71.6 Tobacco abuse counseling ==

== ENCOUNTER 2021-04-18 08:50 | Outpatient (CLI) | payer MEDICARE, OTHER | END 2021-04-18 23:59 | disposition home or self-care (01) | LOC: WOU 08:50 | PROVIDERS: ATTEND Surgery | DX: S80.12XA Contusion of left lower leg, initial encounter (principal); X58.XXXA Exposure to other specified factors, initial encounter; Y92.89 Other specified places as the place of occurrence of the external cause; L72.0 Epidermal cyst; L90.5 Scar conditions and fibrosis of skin; E11.9 Type 2 diabetes mellitus without complications; G57.53 Tarsal tunnel syndrome, bilateral lower limbs; L84 Corns and callosities; M79.671 Pain in right foot; M72.2 Plantar fascial fibromatosis; Z79.4 Long term (current) use of insulin; Z79.02 Long term (current) use of antithrombotics/antiplatelets ==

== ENCOUNTER 2021-04-25 08:30 | Outpatient (CLI) | payer MEDICARE, OTHER | END 2021-04-25 23:59 | disposition home or self-care (01) | LOC: WOU 08:30 | PROVIDERS: ATTEND Surgery | DX: S80.12XD Contusion of left lower leg, subsequent encounter (principal); X58.XXXD Exposure to other specified factors, subsequent encounter; L90.5 Scar conditions and fibrosis of skin; E11.9 Type 2 diabetes mellitus without complications; L84 Corns and callosities; G57.53 Tarsal tunnel syndrome, bilateral lower limbs; M72.2 Plantar fascial fibromatosis; Z79.4 Long term (current) use of insulin; Z79.02 Long term (current) use of antithrombotics/antiplatelets | CPT/HCPCS: G0463 ==

== ENCOUNTER 2021-04-25 09:02 | Outpatient (CLI) | payer MEDICARE, OTHER | END 2021-04-25 23:59 | disposition home or self-care (01) | LOC: MSC 09:02 | PROVIDERS: ATTEND Anesthesiology | DX: G89.4 Chronic pain syndrome (principal); M79.673 Pain in unspecified foot; R20.2 Paresthesia of skin; M46.96 Unspecified inflammatory spondylopathy, lumbar region; M51.36 Other intervertebral disc degeneration, lumbar region; M47.27 Other spondylosis with radiculopathy, lumbosacral region; M62.830 Muscle spasm of back; M79.2 Neuralgia and neuritis, unspecified; Z79.891 Long term (current) use of opiate analgesic; Z79.4 Long term (current) use of insulin ==

== ENCOUNTER 2021-05-23 09:50 | Outpatient (CLI) | payer MEDICARE, OTHER | END 2021-05-23 23:59 | disposition home or self-care (01) | LOC: MSC 09:50 | PROVIDERS: ATTEND Anesthesiology | DX: M46.96 Unspecified inflammatory spondylopathy, lumbar region (principal); M51.36 Other intervertebral disc degeneration, lumbar region; M47.27 Other spondylosis with radiculopathy, lumbosacral region; M62.830 Muscle spasm of back; G89.4 Chronic pain syndrome; M79.2 Neuralgia and neuritis, unspecified; M79.673 Pain in unspecified foot; Z88.6 Allergy status to analgesic agent; Z79.891 Long term (current) use of opiate analgesic; Z79.1 Long term (current) use of non-steroidal anti-inflammatories (NSAID); Z79.4 Long term (current) use of insulin ==

== ENCOUNTER 2021-06-20 09:50 | Outpatient (CLI) | payer MEDICARE, OTHER | END 2021-06-20 23:59 | disposition home or self-care (01) | LOC: MSC 09:50 | PROVIDERS: ATTEND Anesthesiology | DX: M25.512 Pain in left shoulder (principal); M46.96 Unspecified inflammatory spondylopathy, lumbar region; M51.36 Other intervertebral disc degeneration, lumbar region; M47.27 Other spondylosis with radiculopathy, lumbosacral region; M62.830 Muscle spasm of back; G89.4 Chronic pain syndrome; M79.673 Pain in unspecified foot; M79.2 Neuralgia and neuritis, unspecified; Z79.891 Long term (current) use of opiate analgesic; Z88.6 Allergy status to analgesic agent ==

== ENCOUNTER 2021-07-03 11:45 | Outpatient (CLI) | payer MEDICARE, OTHER | END 2021-07-03 23:59 | disposition home or self-care (01) | LOC: MRI 11:45 | PROVIDERS: ATTEND Anesthesiology | DX: M19.012 Primary osteoarthritis, left shoulder (principal); M75.52 Bursitis of left shoulder | CPT/HCPCS: 73221-TC ==

== ENCOUNTER 2021-08-01 09:25 | Outpatient (CLI) | payer MEDICARE, OTHER | END 2021-08-01 23:59 | disposition home or self-care (01) | LOC: MSC 09:25 | PROVIDERS: ATTEND Anesthesiology | DX: G89.4 Chronic pain syndrome (principal); M25.512 Pain in left shoulder; M75.92 Shoulder lesion, unspecified, left shoulder; M79.642 Pain in left hand; M46.96 Unspecified inflammatory spondylopathy, lumbar region; M51.36 Other intervertebral disc degeneration, lumbar region; M47.27 Other spondylosis with radiculopathy, lumbosacral region; M62.830 Muscle spasm of back; M79.2 Neuralgia and neuritis, unspecified; Z79.891 Long term (current) use of opiate analgesic; Z88.6 Allergy status to analgesic agent; Z79.1 Long term (current) use of non-steroidal anti-inflammatories (NSAID); Z79.899 Other long term (current) drug therapy ==

== ENCOUNTER 2021-08-03 09:58 | Outpatient (CLI) | payer MEDICARE, OTHER ==
[2021-08-03 10:59] LABS: BASOPHILS % (AUTO) 0.5 % (0.0-2.0); EOSINOPHILS % (AUTO) 4.3 % (0.0-6.0); HEMATOCRIT 39 % (33-45); HEMOGLOBIN 13.2 g/dL (11.5-14.8); LYMPHOCYTES # (AUTO) 2.1 K/uL (0.8-4.8); LYMPHOCYTES % (AUTO) 35.9 % (20.0-44.0); MEAN CORPUSCULAR HGB CONC 34 g/dl (31.0-36.0); MEAN CORPUSCULAR VOLUME 94 fL (82-100); MONOCYTES # (AUTO) 0.6 K/uL (0.1-1.30); MONOCYTES % (AUTO) 10.6 % (2.0-12.0); NEUTROPHILS # (AUTO) 2.8 K/uL (1.8-8.9); NEUTROPHILS % (AUTO) 48.7 % (43.0-81.0); PLATELET COUNT (AUTO) 191 K/uL (150-450); RED BLOOD CELL COUNT(AUTO) 4.18 MIL/uL (4.0-5.2); WHITE BLOOD COUNT (AUTO) 5.7 K/uL (4.3-11.0)
[2021-08-03 11:07] LABS: BILIRUBIN,URINE NEGATIVE (NEGATIVE); COLOR,URINE YELLOW (YELLOW); LEUKOCYTE ESTERASE ,URINE NEGATIVE (NEGATIVE); NITRITE, URINE NEGATIVE (NEGATIVE); PH,URINE 5.5 (5.0-8.0); PROTEIN,URINE 100 mg/dl (NEGATIVE); UGLUCOSE NEGATIVE (NEGATIVE); UROBILINOGEN,URINE 0.2 EU/dL (0.2)
[2021-08-03 11:36] LABS: BACTERIA,URINE None seen /HPF (None Seen); RBC,URINE 0-2 /HPF (0-2); SQUAMOUS EPITHELIAL CELL,UR None Seen /HPF (None Seen); WBC,URINE 0-2 /HPF (0-3)
[2021-08-03 13:01] LABS: URINE TOTAL PROTEIN 97.4 mg/dL (0-11.9)
[2021-08-03 13:17] LABS: CHOLESTEROL 102 mg/dL (<200); FREE T4 (FREE THYROXINE) 1.02 ng/dL (0.76-1.46); HDL CHOLESTEROL 32 mg/dL (40-60); LDL 48 mg/dL (0-99); THYROID STIMULATING HORMONE 1.017 uIU/mL (0.358-3.74); TRIGLYCERIDES 134 mg/dL (30-150)
[2021-08-03 13:29] LABS: C-REACTIVE PROTEIN < 0.2 mg/dL (0.0-0.9)
[2021-08-03 13:39] LABS: ALANINE AMINOTRANSFERASE 56 U/L (12-78); ALBUMIN 3.4 g/dL (3.4-5.0); ALKALINE PHOSPHATASE 109 U/L (46-116); ASPARTATE AMINOTRANSFERASE 43 U/L (15-37); BILIRUBIN,TOTAL 0.2 mg/dL (0.2-1.0); CALCIUM, SERUM 8.4 mg/dL (8.5-10.1); CREATININE 0.8 mg/dL (0.6-1.3); GLUCOSE 134 mg/dL (74-106); PHOSPHORUS 3.7 mg/dL (2.5-4.9); TOTAL PROTEIN, SERUM 7.7 g/dL (6.4-8.2); UREA NITROGEN, BLOOD 11 mg/dL (7-18)
[2021-08-03 13:44] LABS: CARBON DIOXIDE 22 mmol/L (21-32); CHLORIDE 104 mmol/L (98-107); POTASSIUM 4.2 mmol/L (3.5-5.1); SODIUM SERUM 134 mmol/L (136-145)
== END 2021-08-03 23:59 | disposition home or self-care (01) ==
LOC: MSC 09:58
PROVIDERS: ATTEND Internal Medicine
DX: M25.512 Pain in left shoulder (principal); M77.8 Other enthesopathies, not elsewhere classified; H53.8 Other visual disturbances; L98.9 Disorder of the skin and subcutaneous tissue, unspecified; I25.2 Old myocardial infarction; Z95.5 Presence of coronary angioplasty implant and graft; Z79.01 Long term (current) use of anticoagulants; Z79.82 Long term (current) use of aspirin; I50.9 Heart failure, unspecified; E11.40 Type 2 diabetes mellitus with diabetic neuropathy, unspecified; Z79.4 Long term (current) use of insulin; I25.10 Atherosclerotic heart disease of native coronary artery without angina pectoris; R63.4 Abnormal weight loss; Z68.22 Body mass index [BMI] 22.0-22.9, adult; M54.50 Low back pain, unspecified
CPT/HCPCS: 36415; 80053; 80061; 81001; 82043; 82306; 82570; 82607; 82746; 83036; 83735; 84100; 84155; 84439; 84443; 85025; 85652; 86140; G0463

== ENCOUNTER 2021-08-10 11:00 | Outpatient (CLI) | payer MEDICARE, OTHER | END 2021-08-10 23:59 | disposition home or self-care (01) | LOC: MSC 11:00 | PROVIDERS: ATTEND Internal Medicine | DX: M77.8 Other enthesopathies, not elsewhere classified (principal); M79.643 Pain in unspecified hand; M79.10 Myalgia, unspecified site; E55.9 Vitamin D deficiency, unspecified; H53.8 Other visual disturbances; L98.9 Disorder of the skin and subcutaneous tissue, unspecified; I25.2 Old myocardial infarction; I50.9 Heart failure, unspecified; I25.10 Atherosclerotic heart disease of native coronary artery without angina pectoris; E11.40 Type 2 diabetes mellitus with diabetic neuropathy, unspecified; Z79.4 Long term (current) use of insulin; Z79.84 Long term (current) use of oral hypoglycemic drugs; R63.4 Abnormal weight loss; M54.50 Low back pain, unspecified; Z71.6 Tobacco abuse counseling; Z79.899 Other long term (current) drug therapy ==

== ENCOUNTER 2021-08-15 09:39 | Outpatient (CLI) | payer MEDICARE, OTHER | END 2021-08-15 23:59 | disposition home or self-care (01) | LOC: MSC 09:39 | PROVIDERS: ATTEND Anesthesiology | DX: M75.82 Other shoulder lesions, left shoulder (principal); M79.642 Pain in left hand; G89.4 Chronic pain syndrome | CPT/HCPCS: 96372; J1040 ==

== ENCOUNTER 2021-08-27 17:38 | Emergency (ER) | payer MEDICARE, OTHER ==
[~2021-08-27] VITALS: Ht 154.9 cm; Wt 58.1 kg
[2021-08-27 17:41] VITALS: BP 135/78
--- NOTE | 2021-08-27 17:41 | NUR ---
TO ER BED 1, BIB SON C/O R ARM PAIN S/P GLF R ARM FRACTURE. SEEN IN [facility] AND SPLINT WAS APPLIED, AAOX3, BREATHING EVEN AND NON LABORED, AWAITING MD NESBITT.
[2021-08-27] MEDS ORDERED: HYDR-3980 PO (18:13)
[2021-08-27] MEDS ORDERED: MORPHINE SULFATE INJ 4 MG/ML DISP.SYRIN ONE (18:25)
[2021-08-27] MEDS: MORPHINE SULFATE INJ 2 MG/ML DISP.SYRIN IV ONE (18:29)
[2021-08-27] MEDS: MORPHINE SULFATE INJ 2 MG/ML DISP.SYRIN IM ONE ×2 (18:30→19:48)
--- NOTE | 2021-08-27 19:53 | NUR ---
Patient discharged to home in stable condition. rX AND Written and verbal after care instructions given. Patient verbalizes understanding of instruction.
== END 2021-08-27 20:14 | disposition home or self-care (01) ==
LOC: ER 17:42
DX: S52.571G Other intraarticular fracture of lower end of right radius, subsequent encounter for closed fracture with delayed healing (principal); M25.511 Pain in right shoulder; I10 Essential (primary) hypertension; E78.5 Hyperlipidemia, unspecified; E11.40 Type 2 diabetes mellitus with diabetic neuropathy, unspecified; G89.29 Other chronic pain; Z79.891 Long term (current) use of opiate analgesic; W18.30XD Fall on same level, unspecified, subsequent encounter
CPT/HCPCS: 73030; 73130; 96372 ×2; 99284; J2270

== ENCOUNTER → 2021-08-29 | Outpatient (CLI) | payer MEDICARE, OTHER ==
[~2021-08-29] MED LIST changes: +HYDR-3980 PO; -IOHEXOL-350 100 ML VIAL IV ONE; -IV NS 0.9% 250 ML IV ONE; -IV NS 0.9% 500 ML IV PRN; -METOPROLOL TARTRATE INJ 5 MG/5 ML AMPUL ONE; +MORPHINE SULFATE INJ 2 MG/ML DISP.SYRIN ONE; -NITROGLYCERIN 0.4 MG/TAB BOTTLE ONE; -NITROGLYCERIN 0.4 MG/TAB BOTTLE SL ONE
== END | disposition home or self-care (01) ==
LOC: MSC 09:50
PROVIDERS: ATTEND Anesthesiology
DX: S62.91XA Unspecified fracture of right hand, initial encounter for closed fracture (principal); M25.512 Pain in left shoulder; M75.92 Shoulder lesion, unspecified, left shoulder; G89.4 Chronic pain syndrome; M46.96 Unspecified inflammatory spondylopathy, lumbar region; M51.36 Other intervertebral disc degeneration, lumbar region; M47.27 Other spondylosis with radiculopathy, lumbosacral region; M62.830 Muscle spasm of back; M79.2 Neuralgia and neuritis, unspecified; M79.673 Pain in unspecified foot; M79.642 Pain in left hand; Z79.891 Long term (current) use of opiate analgesic; Z79.1 Long term (current) use of non-steroidal anti-inflammatories (NSAID); Z88.6 Allergy status to analgesic agent
CPT/HCPCS: 96372; J2270

== ENCOUNTER 2021-08-30 13:32 | Outpatient (CLI) | payer MEDICARE, OTHER ==
[~2021-08-30 13:32] MED LIST changes: -MORPHINE SULFATE INJ 2 MG/ML DISP.SYRIN ONE
[2021-08-30 14:50] LABS: BASOPHILS % (AUTO) 0.5 % (0.0-2.0); EOSINOPHILS % (AUTO) 3.8 % (0.0-6.0); HEMATOCRIT 38 % (33-45); HEMOGLOBIN 12.7 g/dL (11.5-14.8); LYMPHOCYTES # (AUTO) 2.1 K/uL (0.8-4.8); MEAN CORPUSCULAR HGB CONC 33 g/dl (31.0-36.0); MEAN CORPUSCULAR VOLUME 94 fL (82-100); MONOCYTES # (AUTO) 0.5 K/uL (0.1-1.30); MONOCYTES % (AUTO) 8.6 % (2.0-12.0); NEUTROPHILS # (AUTO) 2.6 K/uL (1.8-8.9); NEUTROPHILS % (AUTO) 48.1 % (43.0-81.0); PLATELET COUNT (AUTO) 214 K/uL (150-450); RED BLOOD CELL COUNT(AUTO) 4.05 MIL/uL (4.0-5.2); WHITE BLOOD COUNT (AUTO) 5.5 K/uL (4.3-11.0)
[2021-08-30 15:17] LABS: BILIRUBIN,URINE NEGATIVE (NEGATIVE); COLOR,URINE YELLOW (YELLOW); LEUKOCYTE ESTERASE ,URINE NEGATIVE (NEGATIVE); NITRITE, URINE NEGATIVE (NEGATIVE); PH,URINE 5.5 (5.0-8.0); PROTEIN,URINE 30 mg/dl (NEGATIVE); UGLUCOSE NEGATIVE (NEGATIVE); UROBILINOGEN,URINE 0.2 EU/dL (0.2)
[2021-08-30 15:29] LABS: RBC,URINE 0-2 /HPF (0-2)
[2021-08-30 15:30] LABS: BACTERIA,URINE Rare /HPF (None Seen); SQUAMOUS EPITHELIAL CELL,UR 0-2 /HPF (None Seen); WBC,URINE 0-2 /HPF (0-3)
== END 2021-08-30 23:59 | disposition home or self-care (01) ==
LOC: LAB 13:32
PROVIDERS: ATTEND Internal Medicine
DX: Z01.818 Encounter for other preprocedural examination (principal); Z20.822 Contact with and (suspected) exposure to COVID-19
CPT/HCPCS: 36415; 71045; 81001; 85025; 93005; C9803; U0003

== ENCOUNTER 2021-09-04 09:45 | Outpatient (CLI) | payer MEDICARE, OTHER | END 2021-09-04 23:59 | disposition home or self-care (01) | LOC: MSC 09:45 | PROVIDERS: ATTEND Internal Medicine | DX: Z01.818 Encounter for other preprocedural examination (principal); S62.109A Fracture of unspecified carpal bone, unspecified wrist, initial encounter for closed fracture; W19.XXXA Unspecified fall, initial encounter; M77.8 Other enthesopathies, not elsewhere classified; E55.9 Vitamin D deficiency, unspecified; M79.10 Myalgia, unspecified site; H53.8 Other visual disturbances; L98.8 Other specified disorders of the skin and subcutaneous tissue; I25.2 Old myocardial infarction; Z95.5 Presence of coronary angioplasty implant and graft; Z79.01 Long term (current) use of anticoagulants; Z79.82 Long term (current) use of aspirin; I50.9 Heart failure, unspecified; E11.40 Type 2 diabetes mellitus with diabetic neuropathy, unspecified; Z79.4 Long term (current) use of insulin; Z79.84 Long term (current) use of oral hypoglycemic drugs; I25.10 Atherosclerotic heart disease of native coronary artery without angina pectoris; M54.50 Low back pain, unspecified; F17.200 Nicotine dependence, unspecified, uncomplicated; Z71.89 Other specified counseling ==

== ENCOUNTER → 2021-10-17 | Outpatient (CLI) | payer MEDICARE, OTHER | END | disposition home or self-care (01) | LOC: MSC 11:30 | PROVIDERS: ATTEND Anesthesiology | DX: M25.531 Pain in right wrist (principal); M47.27 Other spondylosis with radiculopathy, lumbosacral region; M46.96 Unspecified inflammatory spondylopathy, lumbar region; M51.36 Other intervertebral disc degeneration, lumbar region; M62.830 Muscle spasm of back; G89.4 Chronic pain syndrome; M25.512 Pain in left shoulder; M75.92 Shoulder lesion, unspecified, left shoulder; M79.673 Pain in unspecified foot; M79.2 Neuralgia and neuritis, unspecified; Z79.891 Long term (current) use of opiate analgesic; Z79.1 Long term (current) use of non-steroidal anti-inflammatories (NSAID); Z79.899 Other long term (current) drug therapy ==

== ENCOUNTER 2021-10-24 11:06 | Outpatient (CLI) | payer MEDICARE, OTHER | END 2021-10-24 23:59 | disposition home or self-care (01) | LOC: MSC 11:06 | PROVIDERS: ATTEND Internal Medicine | DX: E11.40 Type 2 diabetes mellitus with diabetic neuropathy, unspecified (principal); Z79.4 Long term (current) use of insulin; Z79.84 Long term (current) use of oral hypoglycemic drugs; Z98.890 Other specified postprocedural states; M77.8 Other enthesopathies, not elsewhere classified; E55.9 Vitamin D deficiency, unspecified; M79.10 Myalgia, unspecified site; H53.8 Other visual disturbances; L98.8 Other specified disorders of the skin and subcutaneous tissue; I25.2 Old myocardial infarction; Z95.5 Presence of coronary angioplasty implant and graft; Z79.01 Long term (current) use of anticoagulants; Z79.82 Long term (current) use of aspirin; I50.9 Heart failure, unspecified; I25.10 Atherosclerotic heart disease of native coronary artery without angina pectoris; M54.50 Low back pain, unspecified; Z71.89 Other specified counseling ==

== ENCOUNTER 2021-11-28 11:00 | Outpatient (CLI) | payer MEDICARE, OTHER | END 2021-11-28 23:59 | disposition home or self-care (01) | LOC: MSC 11:00 | PROVIDERS: ATTEND Anesthesiology | DX: M46.96 Unspecified inflammatory spondylopathy, lumbar region (principal); M51.36 Other intervertebral disc degeneration, lumbar region; M47.27 Other spondylosis with radiculopathy, lumbosacral region; M62.830 Muscle spasm of back; M25.531 Pain in right wrist; G89.4 Chronic pain syndrome; M79.2 Neuralgia and neuritis, unspecified; M79.673 Pain in unspecified foot; M25.512 Pain in left shoulder; M79.642 Pain in left hand; M75.92 Shoulder lesion, unspecified, left shoulder; Z88.6 Allergy status to analgesic agent; Z79.891 Long term (current) use of opiate analgesic; Z79.1 Long term (current) use of non-steroidal anti-inflammatories (NSAID) ==

== ENCOUNTER 2021-12-19 10:18 | Outpatient (CLI) | payer MEDICARE, OTHER | END 2021-12-19 23:59 | disposition home or self-care (01) | LOC: MSC 10:18 | PROVIDERS: ATTEND Anesthesiology | DX: G89.4 Chronic pain syndrome (principal); M25.531 Pain in right wrist; M79.642 Pain in left hand; M46.96 Unspecified inflammatory spondylopathy, lumbar region; M51.36 Other intervertebral disc degeneration, lumbar region; M47.27 Other spondylosis with radiculopathy, lumbosacral region; M79.2 Neuralgia and neuritis, unspecified; M79.673 Pain in unspecified foot; M25.512 Pain in left shoulder; M75.92 Shoulder lesion, unspecified, left shoulder; Z79.891 Long term (current) use of opiate analgesic; Z79.1 Long term (current) use of non-steroidal anti-inflammatories (NSAID); Z79.899 Other long term (current) drug therapy ==

== ENCOUNTER 2022-01-11 00:10 | Emergency (ER) | payer MEDICARE, OTHER ==
[~2022-01-11] VITALS: Ht 157.5 cm; Wt 55.3 kg
[2022-01-11] MEDS ORDERED: HYDROCODONE/APAP 5/325MG TABLET ONE (01:25)
--- NOTE | 2022-01-11 01:25 | NUR ---
TO ER BED 12. BIBS C/O LEFT RIB PAIN S/P "HIT IT ON POLE". PAIN IS 7/10 ON PAIN SCALE. PT IS ALERT AND ORIENTED. AMBULATORY WITH STEADY GAIT. BREATHING IS EVEN AND NONLABORED. CONNECTED TO MONITOR. AWAITING MD NESBITT
[2022-01-11] MEDS ORDERED: HYDROCODONE/APAP 5/325MG TABLET PO ONE (01:30)
--- NOTE | 2022-01-11 01:35 | NUR ---
XRAY AT BEDSIDE
--- NOTE | 2022-01-11 02:17 | NUR ---
STAT RAD PAGED
--- NOTE | 2022-01-11 03:13 | NUR ---
REPAGED STAT RAD PAGED
--- NOTE | 2022-01-11 04:16 | NUR ---
CALLED STAT RAD TO F/U WITH XRAY REPORT. SPOKE TO BERTHA; ETA FOR RADIOLOGIST TO READ REPORT IS 15-20 MINUTES
--- NOTE | 2022-01-11 04:34 | NUR ---
Patient discharged to home in stable condition. Written and verbal after care instructions given. Patient verbalizes understanding of instruction.
[2022-01-11 04:42] VITALS: BP 127/79
== END 2022-01-11 04:42 | disposition home or self-care (01) ==
LOC: ER 00:15
DX: S20.212A Contusion of left front wall of thorax, initial encounter (principal); I10 Essential (primary) hypertension; E78.5 Hyperlipidemia, unspecified; E11.40 Type 2 diabetes mellitus with diabetic neuropathy, unspecified; G89.4 Chronic pain syndrome; W20.8XXA Other cause of strike by thrown, projected or falling object, initial encounter; Y93.K1 Activity, walking an animal; Y92.89 Other specified places as the place of occurrence of the external cause; Y99.8 Other external cause status
CPT/HCPCS: 71100-TC

== ENCOUNTER → 2022-01-12 | Outpatient (CLI) | payer MEDICARE, OTHER | END | disposition home or self-care (01) | LOC: MSC 14:00 | PROVIDERS: ATTEND Internal Medicine | DX: R07.82 Intercostal pain (principal); Z98.890 Other specified postprocedural states; E11.40 Type 2 diabetes mellitus with diabetic neuropathy, unspecified; Z79.4 Long term (current) use of insulin; Z79.84 Long term (current) use of oral hypoglycemic drugs; M77.8 Other enthesopathies, not elsewhere classified; E55.9 Vitamin D deficiency, unspecified; M79.10 Myalgia, unspecified site; H53.8 Other visual disturbances; L98.8 Other specified disorders of the skin and subcutaneous tissue; I50.9 Heart failure, unspecified; I25.2 Old myocardial infarction; Z95.5 Presence of coronary angioplasty implant and graft; Z79.01 Long term (current) use of anticoagulants; Z79.82 Long term (current) use of aspirin; I25.10 Atherosclerotic heart disease of native coronary artery without angina pectoris; M54.50 Low back pain, unspecified; Z71.89 Other specified counseling ==

== ENCOUNTER 2022-01-23 09:24 | Outpatient (CLI) | payer MEDICARE, OTHER | END 2022-01-23 23:59 | disposition home or self-care (01) | LOC: MSC 09:24 | PROVIDERS: ATTEND Anesthesiology | DX: M25.512 Pain in left shoulder (principal); M79.642 Pain in left hand; M75.92 Shoulder lesion, unspecified, left shoulder; M46.96 Unspecified inflammatory spondylopathy, lumbar region; M51.36 Other intervertebral disc degeneration, lumbar region; M47.27 Other spondylosis with radiculopathy, lumbosacral region; M62.830 Muscle spasm of back; G89.4 Chronic pain syndrome; M79.673 Pain in unspecified foot; Z88.6 Allergy status to analgesic agent; Z79.891 Long term (current) use of opiate analgesic; Z79.1 Long term (current) use of non-steroidal anti-inflammatories (NSAID) ==

== ENCOUNTER 2022-01-30 12:10 | Outpatient (CLI) | payer MEDICARE, OTHER | END 2022-01-30 23:59 | disposition home or self-care (01) | LOC: MSC 12:10 | PROVIDERS: ATTEND Anesthesiology | DX: M25.511 Pain in right shoulder (principal); G89.4 Chronic pain syndrome; M25.512 Pain in left shoulder; M75.92 Shoulder lesion, unspecified, left shoulder; M79.642 Pain in left hand; M79.673 Pain in unspecified foot; M46.96 Unspecified inflammatory spondylopathy, lumbar region; M51.36 Other intervertebral disc degeneration, lumbar region; M47.27 Other spondylosis with radiculopathy, lumbosacral region; M62.830 Muscle spasm of back; Z79.891 Long term (current) use of opiate analgesic; Z79.1 Long term (current) use of non-steroidal anti-inflammatories (NSAID) ==

== ENCOUNTER 2022-02-20 11:10 | Outpatient (CLI) | payer MEDICARE, OTHER | END 2022-02-20 23:59 | disposition home or self-care (01) | LOC: MSC 11:10 | PROVIDERS: ATTEND Anesthesiology | DX: M75.82 Other shoulder lesions, left shoulder (principal); G89.4 Chronic pain syndrome; M79.642 Pain in left hand; M79.673 Pain in unspecified foot; M46.96 Unspecified inflammatory spondylopathy, lumbar region; M51.36 Other intervertebral disc degeneration, lumbar region; M47.27 Other spondylosis with radiculopathy, lumbosacral region; M62.830 Muscle spasm of back; M79.2 Neuralgia and neuritis, unspecified; Z79.891 Long term (current) use of opiate analgesic; Z88.6 Allergy status to analgesic agent | CPT/HCPCS: J1040 ×2; 96372 ==

== ENCOUNTER 2022-03-27 09:40 | Outpatient (CLI) | payer MEDICARE, OTHER | END 2022-03-27 23:59 | disposition home or self-care (01) | LOC: MSC 09:40 | PROVIDERS: ATTEND Anesthesiology | DX: M46.96 Unspecified inflammatory spondylopathy, lumbar region (principal); M51.36 Other intervertebral disc degeneration, lumbar region; M47.27 Other spondylosis with radiculopathy, lumbosacral region; M62.830 Muscle spasm of back; G89.4 Chronic pain syndrome; M25.512 Pain in left shoulder; M75.92 Shoulder lesion, unspecified, left shoulder; M79.642 Pain in left hand; M79.673 Pain in unspecified foot; Z79.891 Long term (current) use of opiate analgesic; Z79.1 Long term (current) use of non-steroidal anti-inflammatories (NSAID) ==

== ENCOUNTER 2022-04-17 11:29 | Outpatient (CLI) | payer MEDICARE, OTHER | END 2022-04-17 23:59 | disposition home or self-care (01) | LOC: MSC 11:29 | PROVIDERS: ATTEND Anesthesiology | DX: M46.96 Unspecified inflammatory spondylopathy, lumbar region (principal); M51.36 Other intervertebral disc degeneration, lumbar region; M47.27 Other spondylosis with radiculopathy, lumbosacral region; M62.830 Muscle spasm of back; G89.4 Chronic pain syndrome; M79.2 Neuralgia and neuritis, unspecified; M79.673 Pain in unspecified foot; M75.92 Shoulder lesion, unspecified, left shoulder; M25.512 Pain in left shoulder; M79.642 Pain in left hand; Z79.891 Long term (current) use of opiate analgesic ==

== ENCOUNTER 2022-04-20 12:51 | Outpatient (CLI) | payer MEDICARE, OTHER ==
[~2022-04-20 12:51] MED LIST changes: +DEXAMETHASONE SOD PHOSPHATE 4 MG/ML VIAL IV ONE; +ETHYL CHLORIDE SPRAY 1 EA BOTTLE TP ONE; +LIDOCAINE HCL/MPF 1% 30 ML VIAL IJ ONE
== END 2022-04-20 23:59 | disposition home or self-care (01) ==
LOC: WOU 12:51
PROVIDERS: ATTEND Podiatrist Foot & Ankle Surgery
DX: M72.2 Plantar fascial fibromatosis (principal); G57.52 Tarsal tunnel syndrome, left lower limb; E11.9 Type 2 diabetes mellitus without complications; Z79.4 Long term (current) use of insulin; L90.5 Scar conditions and fibrosis of skin; S80.12XD Contusion of left lower leg, subsequent encounter; X58.XXXD Exposure to other specified factors, subsequent encounter; Z79.02 Long term (current) use of antithrombotics/antiplatelets; M79.672 Pain in left foot
CPT/HCPCS: 20550; J1100; J3490

== ENCOUNTER 2022-05-01 10:30 | Outpatient (CLI) | payer MEDICARE, OTHER ==
[~2022-05-01 10:30] MED LIST changes: -DEXAMETHASONE SOD PHOSPHATE 4 MG/ML VIAL IV ONE; -ETHYL CHLORIDE SPRAY 1 EA BOTTLE TP ONE; -LIDOCAINE HCL/MPF 1% 30 ML VIAL IJ ONE
== END 2022-05-01 23:59 | disposition home or self-care (01) ==
LOC: MSC 10:30
PROVIDERS: ATTEND Anesthesiology
DX: G89.4 Chronic pain syndrome (principal); M46.96 Unspecified inflammatory spondylopathy, lumbar region; M51.36 Other intervertebral disc degeneration, lumbar region; M47.27 Other spondylosis with radiculopathy, lumbosacral region; M62.830 Muscle spasm of back; M79.2 Neuralgia and neuritis, unspecified; M79.673 Pain in unspecified foot; M75.92 Shoulder lesion, unspecified, left shoulder; M25.512 Pain in left shoulder; M79.642 Pain in left hand; Z88.6 Allergy status to analgesic agent; Z79.891 Long term (current) use of opiate analgesic; Z79.1 Long term (current) use of non-steroidal anti-inflammatories (NSAID)

== ENCOUNTER 2022-06-05 09:27 | Outpatient (CLI) | payer MEDICARE, OTHER | END 2022-06-05 23:59 | disposition home or self-care (01) | LOC: MSC 09:27 | PROVIDERS: ATTEND Anesthesiology | DX: M46.96 Unspecified inflammatory spondylopathy, lumbar region (principal); M51.36 Other intervertebral disc degeneration, lumbar region; M47.27 Other spondylosis with radiculopathy, lumbosacral region; M62.830 Muscle spasm of back; G89.4 Chronic pain syndrome; M79.2 Neuralgia and neuritis, unspecified; M25.512 Pain in left shoulder; M75.92 Shoulder lesion, unspecified, left shoulder; M79.642 Pain in left hand; M79.673 Pain in unspecified foot; Z88.6 Allergy status to analgesic agent; Z79.891 Long term (current) use of opiate analgesic ==

== ENCOUNTER 2022-07-10 10:30 | Outpatient (CLI) | payer MEDICARE, OTHER | END 2022-07-10 23:59 | disposition home or self-care (01) | LOC: MSC 10:30 | PROVIDERS: ATTEND Anesthesiology | DX: M47.27 Other spondylosis with radiculopathy, lumbosacral region (principal); M51.36 Other intervertebral disc degeneration, lumbar region; M46.96 Unspecified inflammatory spondylopathy, lumbar region; M62.830 Muscle spasm of back; G89.4 Chronic pain syndrome; M79.2 Neuralgia and neuritis, unspecified; M79.673 Pain in unspecified foot; M25.512 Pain in left shoulder; M75.92 Shoulder lesion, unspecified, left shoulder; M79.642 Pain in left hand; Z88.6 Allergy status to analgesic agent; Z79.891 Long term (current) use of opiate analgesic ==

== ENCOUNTER 2022-08-07 15:53 | Outpatient (CLI) | payer MEDICARE, OTHER | END 2022-08-07 23:59 | disposition home or self-care (01) | LOC: MSC 15:53 | PROVIDERS: ATTEND Anesthesiology | DX: M47.27 Other spondylosis with radiculopathy, lumbosacral region (principal); M46.96 Unspecified inflammatory spondylopathy, lumbar region; M51.36 Other intervertebral disc degeneration, lumbar region; M62.830 Muscle spasm of back; G89.4 Chronic pain syndrome; M79.673 Pain in unspecified foot; M79.2 Neuralgia and neuritis, unspecified; M75.92 Shoulder lesion, unspecified, left shoulder; M25.512 Pain in left shoulder; M79.642 Pain in left hand; Z79.891 Long term (current) use of opiate analgesic ==

== ENCOUNTER 2022-08-28 13:33 | Outpatient (CLI) | payer MEDICARE, OTHER | END 2022-08-28 23:59 | disposition home or self-care (01) | LOC: MSC 13:33 | PROVIDERS: ATTEND Anesthesiology | DX: G89.4 Chronic pain syndrome (principal); M46.96 Unspecified inflammatory spondylopathy, lumbar region; M51.36 Other intervertebral disc degeneration, lumbar region; M47.27 Other spondylosis with radiculopathy, lumbosacral region; M62.830 Muscle spasm of back; M79.2 Neuralgia and neuritis, unspecified; M79.673 Pain in unspecified foot; M75.92 Shoulder lesion, unspecified, left shoulder; M25.512 Pain in left shoulder; M79.642 Pain in left hand; Z79.891 Long term (current) use of opiate analgesic ==

== ENCOUNTER 2022-09-18 09:55 | Outpatient (CLI) | payer MEDICARE, OTHER | END 2022-09-18 23:59 | disposition home or self-care (01) | LOC: MSC 09:55 | PROVIDERS: ATTEND Anesthesiology | DX: G89.4 Chronic pain syndrome (principal); M46.96 Unspecified inflammatory spondylopathy, lumbar region; M51.36 Other intervertebral disc degeneration, lumbar region; M47.27 Other spondylosis with radiculopathy, lumbosacral region; M62.830 Muscle spasm of back; M79.2 Neuralgia and neuritis, unspecified; M79.673 Pain in unspecified foot; M75.92 Shoulder lesion, unspecified, left shoulder; M25.512 Pain in left shoulder; M79.642 Pain in left hand; Z79.891 Long term (current) use of opiate analgesic ==